=== PATIENT | female | born 1970 | race Caucasian/White ===

== ENCOUNTER → 2018-02-07 | Outpatient (CLI) | payer OTHER, BC | LOC: FIMAGING 07:48 | PROVIDERS: ATTEND Orthopaedic Surgery | DX: Z01.818 Encounter for other preprocedural examination (principal); M17.12 Unilateral primary osteoarthritis, left knee ==

== ENCOUNTER 2018-02-26 07:37 | Observation (INO) | payer OTHER, BC ==
--- NOTE | 2018-02-26 06:28 | PDHPUP ---
History & Physical Update H&P update statement: This history and physical update is based on an assessment of the patient which was completed after admission or registration (within 24 hours), but prior to the surgery/procedure. H&P update: no change in patient's condition since H&P completed
--- NOTE | 2018-02-26 06:29 | PDIAF ---
- Diagnosis Diagnosis: left knee djd Code Status: Full Code - Medication Management Discharge Medications: Medications to Continue on Transfer Cholecalciferol Vit D3 [Vitamin D3 2000 units tab (OTC)] 4,000 units PO DAILY [Last Taken Unknown] Herbals/Supplements -Info Only 1 ea PO DAILY 02/01/18 [Last Taken Unknown] Naproxen Sodium [Aleve 220 MG (*)] 440 mg PO BID 02/01/18 [Last Taken Unknown] Thyroid [[place] Thyroid 60 MG (*)] 60 mg PO DAILY10 02/01/18 [Last Taken Unknown ] Vitamin B Complex [Vitamin B Complex (OTC)] 1 each PO BID 02/01/18 [Last Taken Unknown] traZODone [traZODONE 100MG (*)] 100 mg PO HS 02/01/18 [Last Taken Unknown] Discharge Medications: Refer to the Discharge Home Medication list for PRN reason. - Orders Services needed: Physical Therapy Diet Recommendation: no restrictions on diet Diet Texture: Regular Texture Diet Activity/Weight Bearing Restrictions: wbat. rom as stephanie. keep dressing in place unless it becomes saturated. may shower with bandage. seek attn for increasing pain, chest pain, sob, leg pain, drainage or other focal complaint. f/u at two weeks Additional Instructions: TOTAL JOINT ARTHROPLASTY DISCHARGE INSTRUCTIONS 1. Your surgeon follows the [facility] protocol for reducing your risk of DVT (blood clots) following surgery. Medication will be ordered to prevent blood clots. A sudden increase in calf pain and/or swelling could indicate a blood clot in your leg. If this occurs, please call your surgeon or his/her bioinformatics assistant. An ultrasound of the leg may be necessary to diagnose a blood clot. If you have conditions that make you a higher risk for blood clots, your surgeon may use more aggressive ways to prevent them. Notify your surgeon if you think you are a high risk for blood clots. 2. Wear your white surgical stockings (MARILIA hose) for 2 weeks. This decreases your swelling and may help prevent blood clots. It is ok to remove MARILIA hose at night time to give your legs a break. 3. Swelling and bruising in the surgical leg is common. If you feel that it is excessive, please notify your surgeon. 4. Elevate your surgical leg with the ankle above the hip several times every day. Please keep the leg straight when you elevate by putting pillows under your foot. Do not put pillows under your knee. This will make being able to fully straighten more difficult. This is uncomfortable, but try to do it as much as possible. 5. For total knee replacements use compressive wrap on your knee for 3-5 days after surgery, then you can discontinue it. 6. Use a walker or crutches for 1-2 weeks. Progress your weight-bearing as tolerated. You may start to use a cane when you feel stable and safe. 7. You will receive physical therapy instructions in the hospital. Continue those exercises at home. There are additional exercises in the total joint booklet you were given before surgery. Outpatient physical therapy will begin 7- 10 days after surgery. Please schedule this in advance. 8. Use ice on your knee at least 3-5 times every day for 30 minutes. This helps reduce pain and swelling. Also use it at night before falling asleep. 9. Leave your surgical dressing in place for 2 weeks. Your dressing is water resistant, but not waterproof. Cover it with Saran Wrap or Kiaix-v-Xtpi before showering. You may shower as soon as you feel safe entering a shower. If you notice bleeding from your incision 2 or 3 days after surgery, please notify your surgeon. 10. Due to narcotics, decreased activity and altered diet, most patients experience constipation after surgery. Use rmhv-uil-eeurads stool softeners while you are on narcotics. 11. You may drive a car when you are comfortable bearing weight, have good muscular control of your leg and are off narcotics. This usually occurs 2-4 weeks after surgery, depending on which leg was operated on. 12. If there are questions not addressed here, please refer the [facility] book given for more information. If you still have questions, please contact your surgeon s office. 13. If you have a life-threatening emergency, please call 911 and go to the emergency room immediately. For non-life threatening emergencies, please call your physicians office for advice before going to the emergency room. - Follow Up Care Current Providers and Referrals: Abdias Carter MD [Primary Care Provider] - Javier Mendes MD [Medical Doctor] -
[~2018-02-26 07:37] MED LIST: ROPIVACAINE 0.2% 80 MG, EPINEPHrine 0.2 MG, KETOROLAC TROMETHAMINE 30 MG, morphINE 10 M... IU ONE; TRANEXAMIC ACID 1,000 MG in NS 100 ML IV ONE
[2018-02-26] MEDS ORDERED: CALCIUM CHLORIDE 1 GM/10 ML INJ ONE (07:40)
[2018-02-26] MEDS ORDERED: THROMBIN (BOVINE) 5,000 UNIT VIAL TP ONE (07:40)
[2018-02-26] MEDS ORDERED: ceFAZolin 1 GM/5 ML SYR ONE (07:41)
[2018-02-26] MEDS ORDERED: FAMOTIDINE 20 MG TAB PO ONE (08:17)
[2018-02-26] MEDS ORDERED: ACETAMINOPHEN 325 MG TAB PO ONE (08:17)
[2018-02-26] MEDS ORDERED: ceFAZolin 2 GM/DEXTROSE 100 ML IV ONE (08:17)
[2018-02-26] MEDS ORDERED: LIDOCAINE 1% 2 ML INJ ID PRN (08:19)
[2018-02-26] MEDS ORDERED: LR 1,000 ML IV ONE (08:19)
--- NOTE | 2018-02-26 09:18 | PDANEPAE ---
ANE History of Present Illness 47 year old with left knee arthritis ANE Past Medical History - Cardiovascular History Hx Hypertension: No Hx Arrhythmias: No Hx Chest Pain: No Hx Coronary Artery / Peripheral Vascular Disease: No Hx CHF / Valvular Disease: No Hx Palpitations: No - Pulmonary History Hx COPD: No Hx Asthma/Reactive Airway Disease: No Hx Recent Upper Respiratory Infection: No Hx Oxygen in Use at Home: No Hx Sleep Apnea: No Sleep Apnea Screening Result - Last Documented: Negative - Neurologic History Hx Cerebrovascular Accident: No Hx Seizures: No Hx Dementia: No - Endocrine History Hx Diabetes: No Endocrine History Comment: HYPOTHYROID - Renal History Hx Renal Disorders: No - Liver History Hx Hepatic Disorders: No - Neurological & Psychiatric Hx Hx Neurological and Psychiatric Disorders: No - Cancer History Hx Cancer: No - Congenital Disorder History Hx Congenital Disorders: No - GI History Hx Gastrointestinal Disorders: No - Other Health History Other Health History: UPPER FRONT TOOTH ON A RETAINER - Chronic Pain History Chronic Pain: Yes (LT KNEE) - Surgical History Prior Surgeries: HYSTERECTOMY. RT S&O. APPENDECTOMY. LT KNEE SCOPE. RT TOTAL HIP 2007. RT BUNION AND 2ND TOE SURG ANE Review of Systems Review of systems is: negative Review of Systems: - Exercise capacity METS (RN): 5 METS ANE Patient History - Allergies Allergies/Adverse Reactions: Fish Containing Products [fish] Allergy (Verified 02/02/18 17:16) NAUSEA AND VOMITING - Home Medications Home medications: home medication list seen and reviewed Home Medications: Cholecalciferol Vit D3 [Vitamin D3 2000 units tab (OTC)] 4,000 units PO DAILY [Last Taken Unknown] Herbals/Supplements -Info Only 1 ea PO DAILY 02/01/18 [Last Taken Unknown] Naproxen Sodium [Aleve 220 MG (*)] 440 mg PO BID 02/01/18 [Last Taken Unknown] Thyroid [[place] Thyroid 60 MG (*)] 60 mg PO DAILY10 02/01/18 [Last Taken Unknown ] Vitamin B Complex [Vitamin B Complex (OTC)] 1 each PO BID 02/01/18 [Last Taken Unknown] traZODone [traZODONE 100MG (*)] 100 mg PO HS 02/01/18 [Last Taken Unknown] - NPO status NPO Status: no food or drink >8 hours NPO Since - Liquids (Date): 02/25/18 NPO Since - Liquids (Time): 20:00 NPO Since - Solids (Date): 02/25/18 NPO Since - Solids (Time): 20:00 - Smoking Hx Smoking Status: Former smoker ANE Labs/Vital Signs - Vital Signs Blood Pressure: 122/88 Heart Rate: 84 Respiratory Rate: 16 O2 Sat (%): 97 Height: 165.1 cm Weight: 79.379 kg ANE Physical Exam - Airway Neck exam: FROM Mallampati Score: Class 1 Mouth exam: normal dental/mouth exam - Pulmonary Pulmonary: no respiratory distress - Cardiovascular Cardiovascular: regular rate and rhythym - ASA Status ASA Status: II ANE Anesthesia Plan Anesthesia Plan: spinal
[2018-02-26] MEDS ORDERED: MIDAZOLAM 2 MG/2 ML VIAL ONE (09:54)
[2018-02-26] MEDS ORDERED: PROPOFOL/EMULSION 500 MG/50 ML BOTTLE IV ONE (10:49)
[2018-02-26] MEDS ORDERED: TEMAZEPAM 15 MG CAP PO PRN (11:18)
[2018-02-26] MEDS ORDERED: CYCLOBENZAPRINE 10 MG TAB PO PRN (11:18)
[2018-02-26] MEDS ORDERED: ONDANSETRON DISINTEGRATING 4 MG TAB PO PRN (11:18)
[2018-02-26] MEDS ORDERED: METOCLOPRAMIDE 10 MG/2 ML VIAL IVP PRN (11:18)
[2018-02-26] MEDS ORDERED: POLYETHYLENE GLYCOL 3350 17 GM PKT PO PRN (11:18)
[2018-02-26] MEDS ORDERED: diphenhydrAMINE 25 MG CAP PO PRN (11:18)
[2018-02-26] MEDS ORDERED: LACTULOSE 20 GM/30 ML UDCUP PO PRN (11:18)
[2018-02-26] MEDS ORDERED: BISACODYL 10 MG SUPP PR PRN (11:18)
[2018-02-26] MEDS ORDERED: PROMETHAZINE HCL 25 MG/ML INJ IVP PRN ×2 (11:18→11:52)
[2018-02-26] MEDS ORDERED: MAGNESIUM HYDROXIDE 30 ML UDCUP PO PRN (11:18)
[2018-02-26] MEDS ORDERED: DIPHENOXYLATE/ATROPINE LOMOTIL 1 TAB PO PRN (11:18)
[2018-02-26] MEDS ORDERED: PROMETHAZINE HCL 25 MG SUPPR PR PRN (11:18)
--- NOTE | 2018-02-26 11:18 | POSTOPPROG ---
Post Op Note Date of Operation: 02/26/18 Surgeon: Javier Mendes Municipal Clerk: wendie Anesthesiologist: warm Anesthesia: GET(General Endotracheal), Spinal Pre-op Diagnosis: left knee djd Post-op Diagnosis: same Indication: same Procedure: left tka Inf/Abcess present in the surg proc area at time of surgery?: No Depth: Deep Incisional (Fascial) EBL: 50-100
[2018-02-26] MEDS ORDERED: LR 1,000 ML IV SCH (11:30)
[2018-02-26] MEDS ORDERED: ROPIVACAINE HCL 150 MG/30 ML INJ ONE (11:32)
[2018-02-26] MEDS ORDERED: NALOXONE HCL 0.4 MG/ML INJ IVP PRN (11:52)
[2018-02-26] MEDS ORDERED: fentaNYL 100 MCG/2 ML INJ IVP PRN (11:52)
[2018-02-26] MEDS ORDERED: ONDANSETRON 4 MG/2 ML VIAL IVP PRN (11:52)
--- NOTE | 2018-02-26 11:53 | POSTANESTH ---
Post Anesthetic Evaluation Cardiovascular Status: Normal, Stable Respiratory Status: Normal, Stable Level of Consciousness/Mental Status: Can Participate in Eval, Alert and Oriented Pain Control: Adequate, Prn Tx Ordered Nausea/Vomiting Control: Adequate, Prn Tx Ordered Complications Possibly Related to Anesthesia: None Noted
[2018-02-26] MEDS: ACETAMINOPHEN 325 MG TAB PO SCH ×3 (13:29→23:39)
[2018-02-26] MEDS: TRANEXAMIC ACID 650 MG TAB PO SCH ×2 (15:29→23:38)
[2018-02-26] MEDS: oxyCODONE IR 5 MG TAB PO PRN (15:30)
[2018-02-26] MEDS: ceFAZolin 2 GM/DEXTROSE 100 ML IV SCH (17:51)
[2018-02-26] MEDS: ONDANSETRON 4 MG/2 ML VIAL IVP PRN (18:31)
[2018-02-26] MEDS: SENNOSIDES/DOCUSATE SODIUM TAB PO SCH (20:58)
[2018-02-26] MEDS: ASPIRIN 325 MG TAB PO SCH (20:58)
[2018-02-26] MEDS: FAMOTIDINE 20 MG TAB PO SCH (20:59)
[2018-02-26] MEDS ORDERED: traZODone 100 MG TAB PO SCH (21:00)
[2018-02-27] MEDS: oxyCODONE IR 5 MG TAB PO PRN ×2 (01:44→12:03)
[2018-02-27] MEDS: ceFAZolin 2 GM/DEXTROSE 100 ML IV SCH (01:45)
[2018-02-27] MEDS: TRANEXAMIC ACID 650 MG TAB PO SCH (07:03)
[2018-02-27] MEDS: ACETAMINOPHEN 325 MG TAB PO SCH ×2 (07:03→12:02)
--- NOTE | 2018-02-27 07:13 | PDIAF ---
- Diagnosis Diagnosis: left knee djd Code Status: Full Code - Medication Management Discharge Medications: Medications to Continue on Transfer Cholecalciferol Vit D3 [Vitamin D3 2000 units tab (OTC)] 4,000 units PO DAILY [Last Taken Unknown] Herbals/Supplements -Info Only 1 ea PO DAILY 02/01/18 [Last Taken Unknown] Thyroid [[place] Thyroid 60 MG (*)] 60 mg PO DAILY10 02/01/18 [Last Taken Unknown ] Vitamin B Complex [Vitamin B Complex (OTC)] 1 each PO BID 02/01/18 [Last Taken Unknown] traZODone [traZODONE 100MG (*)] 100 mg PO HS 02/01/18 [Last Taken Unknown] Aspirin [Aspirin 325 mg (*)] 325 mg PO DAILY tab 02/27/18 [Last Taken Unknown] oxyCODONE IR [Oxycodone Ir (*)] 5 - 10 mg PO Q3HRS PRN #50 tab 02/27/18 [Last Taken Unknown] Discharge Medications: Refer to the Discharge Home Medication list for PRN reason. - Orders Services needed: Physical Therapy Diet Recommendation: no restrictions on diet Diet Texture: Regular Texture Diet Activity/Weight Bearing Restrictions: wbat. rom as stephanie. keep dressing in place unless it becomes saturated. may shower with bandage. seek attn for increasing pain, chest pain, sob, leg pain, drainage or other focal complaint. f/u at two weeks Additional Instructions: TOTAL JOINT ARTHROPLASTY DISCHARGE INSTRUCTIONS 1. Your surgeon follows the [facility] protocol for reducing your risk of DVT (blood clots) following surgery. Medication will be ordered to prevent blood clots. A sudden increase in calf pain and/or swelling could indicate a blood clot in your leg. If this occurs, please call your surgeon or his/her statistical assistant. An ultrasound of the leg may be necessary to diagnose a blood clot. If you have conditions that make you a higher risk for blood clots, your surgeon may use more aggressive ways to prevent them. Notify your surgeon if you think you are a high risk for blood clots. 2. Wear your white surgical stockings (MARILIA hose) for 2 weeks. This decreases your swelling and may help prevent blood clots. It is ok to remove MARILIA hose at night time to give your legs a break. 3. Swelling and bruising in the surgical leg is common. If you feel that it is excessive, please notify your surgeon. 4. Elevate your surgical leg with the ankle above the hip several times every day. Please keep the leg straight when you elevate by putting pillows under your foot. Do not put pillows under your knee. This will make being able to fully straighten more difficult. This is uncomfortable, but try to do it as much as possible. 5. For total knee replacements use compressive wrap on your knee for 3-5 days after surgery, then you can discontinue it. 6. Use a walker or crutches for 1-2 weeks. Progress your weight-bearing as tolerated. You may start to use a cane when you feel stable and safe. 7. You will receive physical therapy instructions in the hospital. Continue those exercises at home. There are additional exercises in the total joint booklet you were given before surgery. Outpatient physical therapy will begin 7- 10 days after surgery. Please schedule this in advance. 8. Use ice on your knee at least 3-5 times every day for 30 minutes. This helps reduce pain and swelling. Also use it at night before falling asleep. 9. Leave your surgical dressing in place for 2 weeks. Your dressing is water resistant, but not waterproof. Cover it with Saran Wrap or Wmvyf-h-Kynz before showering. You may shower as soon as you feel safe entering a shower. If you notice bleeding from your incision 2 or 3 days after surgery, please notify your surgeon. 10. Due to narcotics, decreased activity and altered diet, most patients experience constipation after surgery. Use wtps-cih-qoteokg stool softeners while you are on narcotics. 11. You may drive a car when you are comfortable bearing weight, have good muscular control of your leg and are off narcotics. This usually occurs 2-4 weeks after surgery, depending on which leg was operated on. 12. If there are questions not addressed here, please refer the [facility] book given for more information. If you still have questions, please contact your surgeon s office. 13. If you have a life-threatening emergency, please call 911 and go to the emergency room immediately. For non-life threatening emergencies, please call your physicians office for advice before going to the emergency room. - Follow Up Care Current Providers and Referrals: Abdias Carter MD [Primary Care Provider] - Javier Mendes MD [Medical Doctor] -
--- NOTE | 2018-02-27 07:15 | SOAPPROG ---
SOAP Progress Note Assessment/Plan: Assessment: s/p tka Plan:d/c home when cleared by pt no acute issues dvt precautions reviewed 02/27/18 07:13 Subjective: mild pain no cp or sob no leg pain pain at left thigh Objective: Vital Signs Temp Pulse Resp BP Pulse Ox 36.6 C 71 17 87/55 L 94 02/27/18 03:00 02/27/18 03:00 02/27/18 03:00 02/27/18 03:00 02/27/18 03:00 Laboratory Results 02/27/18 04:45 02/26/18 02/27/18 02/28/18 05:59 05:59 05:59 Intake Total 1455 Output Total 2550 Balance -1095 dressing clean, dry and intact intact pf, df, ehl toes warm and pink neg homans xrays stable alignment no fx or lucency ICD10 Worksheet Patient Problems: Problems Problem Status Onset Arthritis of knee Acute - ICD10 Problem Qualifiers (1) Arthritis of knee
[2018-02-27 07:49] VITALS: BP 119/76
[2018-02-27] MEDS: ONDANSETRON 4 MG/2 ML VIAL IVP PRN (09:14)
[2018-02-27] MEDS ORDERED: THYROID 60 MG TAB PO SCH (10:00)
[2018-02-27] MEDS: SENNOSIDES/DOCUSATE SODIUM TAB PO SCH (10:10)
[2018-02-27] MEDS: FAMOTIDINE 20 MG TAB PO SCH (10:10)
[2018-02-27] MEDS: ASPIRIN 325 MG TAB PO SCH (10:11)
--- NOTE | 2018-02-27 12:07 | ASMTCMCOM ---
CM Note CM Note Notes: Pt medically stable for d/c, declines HHC. PT rec home. No CM d/c needs identified. Date Signed: 02/27/2018 12:06 PM Electronically Signed By:THIAGO Abdullahi
--- NOTE | 2018-02-27 12:09 | ASDISCHSUM ---
Discharge Information Plan Status:Home with No Needs Medically Cleared to Leave: Discharge Date:02/27/2018 12:06 PM CM D/C Disposition:Home, Routine, Self-Care ADT D/C Disposition:Home Health Service Projected Discharge Date:02/27/2018 12:06 PM Transportation at D/C: Discharge Delay Reason: Follow-Up Date:02/27/2018 12:06 PM Discharge Slot: Final Diagnosis: Placement Information Patient Contact Information Contact Name:DONNIE Relationship: Address:[address] Work Phone: City:[facility] Phone: State/Zip Code:[place] [address] Email: Financial Information Financial Class:[employer] Primary Plan Desc[facility] Primary Plan Number:[id number] Secondary Plan Desc:[facility] Secondary Plan Number:[id number] Assessment Information [facility] CM Progress Note CM Note CM Note Notes: Pt medically stable for d/c, declines [facility]. PT rec home. No CM d/c needs identified. Date Signed: 02/27/2018 12:06 PM Electronically Signed By:THIAGO Abdullahi LACE LACAlyssa Length of stay for Answers: 1 day current admission Acuity / Level of Answers: No Care: Did the patient have an inpatient admission? Comorbidities - select Answers: Other Notes: hypothyroidism all that apply # of Emergency department Answers: 0 visits in the last 6 months Score: 2 Date Signed: 02/27/2018 12:08 PM Electronically Signed By:THIAGO Abdullahi Intervention Information
--- NOTE | 2018-02-28 08:09 | GOP ---
[f rep st] OPERATIVE REPORT DATE OF OPERATION: 02/26/2018 SURGEON: Javier Mendes MD BASS SINGER: Moody Puckett, DIETARY MANAGER, REPAIRER HELPER, surgical oncologist was medical necessity for the entirety of t he case preoperative. PREOPERATIVE DIAGNOSIS: Left knee degenerative joint disease. POSTOPERATIVE DIAGNOSIS: Left knee degenerative joint disease. PROCEDURE PERFORMED: Left total knee arthroplasty, MAKOplasty. FINDINGS: SPECIMENS: Pathology, the bony cuts. INDICATIONS: The patient is a -vklu-ozd woman with end-stage arthritis to her left knee. Clinical and radiographic features are consistent with this. She has failed all attempts at conserva tive management. I have therefore recommended total knee replacement. I have outlined the surgical procedure, risks, benefits, and alternatives. She wished to proceed. DESCRIPTION OF PROCEDURE: The patient was identified in the preanesthesia area. The left knee clear ly demarcated as operative site with an indelible marker. She was given 2 g of Ancef intravenously e n route to the operative suite. In the OR, spinal anesthesia with IV sedation was administered. Att ention was turned to the left lower extremity which was sterilely prepped and draped. A tourniquet w as applied to the upper thigh. Appropriate time-out procedure was carried out. The limb was then ex sanguinated with an Esmarch bandage. Tourniquet inflated to 275 mmHg. A standard anterior midline i ncision was made. Thick subcutaneous flaps were elevated followed by medial parapatellar arthrotomy. Subperiosteal elevation was carried out to the mid coronal plane. There was tricompartmental arthr itic change. The decision was made to proceed with total knee replacement. Two pins were then place d across the medial distal femur and the femoral reference array affixed. A percutaneous incision wa s made over the distal tibia and 2 pins were then placed and the tibial reference array affixed. The tibial and femoral check points were placed. The bony landmarks were entered into the computer. Th e knee was balanced through the flexion-extension arc with soft tissue release and manipulation of co mponents using the software. Using the MAKOplasty robot, resections were made for a size 2 femur, si ze 3 tibia, and ultimately a 3 x 13 mm polyethylene spacer was placed. This allowed full extension o f the knee and no instability to varus or valgus stress through the flexion-extension arc. The trial components were withdrawn. In a sequential fashion the tibia and femoral components were press-fit and confirmed to be fully seated. A 3 x 13 mm polyethylene spacer was placed and confirmed to be ful ly seated. The patella was then everted, cut in a freehand cutting technique. Drill holes were made for a size 32 patella and a press-fit 32 mm patella was placed and confirmed to be fully seated. [facility] knee was taken through flexion-extension, was stable and appropriate as above. The patella tracked centrally through the flexion-extension arc. The wound was copiously irrigated. The soft tissue in jected with a joint cocktail of ropivacaine, morphine, Toradol, and epinephrine. The medial parapate llar arthrotomy closed using #1 Ethibond. The subcutaneous tissue closed using 2-0 Monocryl and the skin was stapled. Sterile dressing was applied. The patient was awakened, extubated and taken to [facility] recovery room in good stable condition. TOTAL TOURNIQUET TIME: 50 minutes. COMPLICATIONS: None. IMPLANTS: Lars triathlon posterior stabilized femoral component size 2, a size 3 tibial component , 3 x 13 mm X3 polyethylene spacer and 32 mm metal-backed poly patella. DISPOSITION: To the recovery room, then the floor. She is weightbearing range of motion as rolo latham. /[id number]/MODL
--- NOTE | 2018-02-28 14:42 | GDS ---
[f rep st] DISCHARGE SUMMARY RAYON WINDER: None. ADMISSION DIAGNOSIS: Left knee degenerative joint disease. DISCHARGE DIAGNOSIS: Left knee degenerative joint disease. PROCEDURE: Left total knee arthroplasty. HISTORY OF PRESENT ILLNESS: The patient is a 47-year-old woman with end-stage arthritis to her left knee. She has failed all attempts at conservative management. I have therefore recommended total knee replacement. She presents today for elective procedure. HOSPITAL COURSE: The patient was admitted to the hospital floor after uncomplicated total knee arthr oplasty. She had no postoperative complications. At the time of discharge, she is tolerating an oral diet. Pain is well controlled on oral medicines. She is voiding without difficulty. Dressing is clean , dry, and intact. She has no calf swelling or tenderness. Negative Homans. X-rays are stable with an atomic alignment. DISCHARGE ACTIVITY: Weightbearing as tolerated. Range of motion as tolerated. Keep the dressing on f or showering. FOLLOWUP: Followup in 2 weeks. Seek attention for increasing redness, swelling, drainage, discharge, calf pain, or other focal complaint. DISCHARGE MEDICATIONS: Oxycodone 5 mg 1-2 every 6 hours p.r.n. pain, aspirin 325 mg p.o. daily. /[id number]/MODL
== END 2018-02-27 12:06 | disposition home health service (06) ==
LOC: INTOOBSV 07:37 → F3N 07:37 → EDSTATUS 09:00 → F3N 13:04
PROVIDERS: ADMIT Orthopaedic Surgery; ATTEND Orthopaedic Surgery
PROC: 0SRD0JZ Replacement of Left Knee Joint with Synthetic Substitute, Open Approach (ICD-10-PCS; principal; 2018-02-26 09:15)
DX: M17.12 Unilateral primary osteoarthritis, left knee (principal)
CPT/HCPCS: 27447; 73560; 97116; 97161; 97165; 97530; G0378; J0171; J0690; J1885; J2250; J2270; J2405; J2704; J2795

== ENCOUNTER → 2018-04-09 | Outpatient (CLI) | payer OTHER, BC | LOC: BMCIMAGING 08:43 | PROVIDERS: ATTEND Physician Assistant | DX: Z47.1 Aftercare following joint replacement surgery (principal); Z96.652 Presence of left artificial knee joint ==

== ENCOUNTER → 2018-05-25 | Outpatient (CLI) | payer OTHER, BC | LOC: BMCIMAGING 09:48 | PROVIDERS: ATTEND Physician Assistant | DX: Z47.1 Aftercare following joint replacement surgery (principal); Z96.652 Presence of left artificial knee joint ==

== ENCOUNTER → 2018-09-07 | Outpatient (CLI) | payer OTHER, BC | LOC: BMCIMAGING 08:29 → EDSTATUS 10:13 | PROVIDERS: ATTEND Physician Assistant | DX: Z96.652 Presence of left artificial knee joint (principal) ==